=== PATIENT | female | born 1990 | race Caucasian/White ===

== ENCOUNTER 2016-10-24 07:08 | Day surgery (SDC) | payer OTHER ==
[~2016-10-24] VITALS: Ht 160 cm; Wt 62.7 kg
[2016-10-24] MEDS ORDERED: Propofol 10,000 mCg/mL 20 mL Inj ONE (07:09)
[2016-10-24] MEDS ORDERED: fentaNYL-PF 50 mCg/mL 2 mL Inj ONE (07:09)
[2016-10-24] MEDS: Lactated Ringer's 1,000 ML IV SCH ×2 (07:12→10:25)
[2016-10-24 07:51] VITALS: BP 114/71; PULSE 77; RESP 16; O2SAT 100
[2016-10-24] MEDS ORDERED: Lactated Ringer's 500 ML IV PRN (10:13)
[2016-10-24] MEDS ORDERED: Lactated Ringer's 1,000 ML IV SCH (10:13)
--- NOTE | 2016-10-24 10:13 | PCM.HPANE ---
Patient Data Date of Service: October 24, 2016 (1012) Surgeon Admitting Provider: Attending Provider:Young Santos MD Primary Care Physician:Danial Other Provider:Regan Fields Anesthesia Reason for Visit Foreign Body Right Middle Finger Ht/WT & BMI Height (Feet): 5 Height (Inches): 3.00 Weight (Kilograms): 62.7 Body Mass Index 24.00 Allergies Coded Allergies: No Known Allergies (Verified Allergy, 09/26/10) Past Anesthesia History Anesthesia History: Denies:: Abnormal Airway, Difficult Intubation Diabetes History Hx Diabetes?: No MRSA MRSA: No Medications Home Meds Incl Beta Carey: No Discontinued Reported Medications IBUPROFEN-Expunged Drug, Do Not Renew! 600 Mg [id number] Mg PO PRN 09/25/10 Acetaminphen-Expunged Drug, Do Not Renew! 650 Mg [id number] Mg PO PRN 09/25/10 History History of ENT Problems?: No HEENT History: Denies:: Abnormal Airway Cataracts Difficult Intubation Dysphagia Hearing Problem Sinus Problem TMJ Denture Type: None Teeth Condition: Within Normal Limits Hx of Heart Problems?: No Cardiovascular History: Denies:: Chest Pain Hx of Respiratory Problem?: No Respiratory History: Denies:: Cough Hx Neurologic Problems?: No Hx of GI Problems?: No Hx of Problems?: No Genitourinary History: Positive for:: Urinary Tract Infection (2 -3 in a life time) Female Hx: Denies:: Currently Endometriosis Pelvic Inflammatory Problems with Breasts? Skin History: Positive for:: History Skin Disorders? (cellulitis right middle finger) Denies:: Pressure Ulcers Hx Musculoskeletal Problems?: No Hx of Psycho/Social Problems?: No Hx Surgeries?: No Hx Any Other Health Problems?: No Other History: Denies:: Cancer History Blood Transfusions: Denies:: Blood Transfusions Hx Diabetes: No Hx Alcohol Use: YesHx Substance Use: No Stop/Bang S-Snoring: Do You Snore Loudly: No T-Tired: feel tired, fatigued: No O-Obsered: Observed not breath: No P-Blood Pressure: treated: No B- Body Mass Index > 35 kg/m2: No A- Age over 50: No N- Neck Large Circumference: No G- Gender Male: No DANIELLA Total Score: 0 DANIELLA Risk Assessment: Low Risk, <3 Yes Risk Assessment Category Category 1A: Patient has history of documented sleep apnea, and HAS NOT received any narcotic, sedative or anesthesia administration during this stay. Category 1B: Patient has history of documented sleep apnea, and HAS received any narcotic , sedative or anesthesia administration during this stay Category 2: Patient has SUSPECTED Obstructive Sleep Apnea, and HAS received any narcotic , sedative or anesthesia administration during this stay. Category 3: Patient has SUSPECTED Obstructive Sleep Apnea and HAS NOT received narcotic, sedative or anesthesia administration during this stay. Category 4: Outpatient in Procedural Areas with known sleep apnea or who screen positive for High Risk via the STOP/BANG questionnaire. Exam Exam Vital Signs Vital Signs Date Time Temp Pulse Resp B/P Pulse Ox O2 Delivery O2 Flow Rate FiO2 10/24/16 07:51 36.7 77 16 114/71 100 Room Air General Appearance: Alert HEENT/AIRWAY: MP 1 Lungs: Clear to Auscultation Heart: Exam Unremarkable Meds/Labs/Diagnostics Admission Meds Current Medications Lactated Ringer's (Lr) 1,000 ml @ 120 mls/hr [id number] IV Last administered on t 07:12; Start 10/24/16 at 05:00; Stop 10/24/16 at 13:19 Plan Impression Patient chart reviewed, patient interviewed and anesthestic plan with risks, benefits, and alternatives discussed, and informed consent obtained. NPO per Anesth. Guidelines: Yes ASA Physical Status: ASA1 Normal Healthy Anesthetic Plan: MAC Bene/Risks/Altern/Consents: Yes HP Complete Prior to Induction: Yes Beny Malhotra MD October 24, 2016 10:13
[2016-10-24] MEDS ORDERED: HYDROmorphone 1 mg/mL Inj IVPUSH PRN (10:15)
[2016-10-24] MEDS ORDERED: Dexamethasone 4 mg/mL Inj IVPUSH PRN (10:15)
[2016-10-24] MEDS ORDERED: EPHEDrine Sulfate 50 mg/mL Inj IVPUSH PRN (10:15)
[2016-10-24] MEDS ORDERED: Ondansetron 2 mg/mL 2 mL Inj IVPUSH PRN (10:15)
[2016-10-24] MEDS ORDERED: Phenylephrine 10,000 mCg/mL Inj IVPUSH PRN (10:15)
[2016-10-24] MEDS ORDERED: MetoCLOpramide 5 mg/mL 2 mL Inj IVPUSH PRN (10:15)
[2016-10-24] MEDS ORDERED: fentaNYL-PF 50 mCg/mL 2 mL Inj IVPUSH PRN (10:15)
[2016-10-24] MEDS ORDERED: Bupivacaine-MPF 0.25% 30 mL Inj INFILTRATE ONE (10:42)
[2016-10-24] MEDS ORDERED: Bacitracin Ointment Packet TOPICAL ONE (10:56)
--- NOTE | 2016-10-24 11:05 | PCM.ANEP1 ---
Post Anesthesia PACU Phase 1 Assessment Vital Signs 107/60, 100, 60, 21, 36.2 Vital Signs Date Time Temp Pulse Resp B/P Pulse Ox O2 Delivery O2 Flow Rate FiO2 10/24/16 07:51 36.7 77 16 114/71 100 Room Air Anesthetic Administered: MAC Level of Alertness: Awake, talking PURI's with Equal Strength: Yes Pain: No Nausea or Vomiting: No CV Function and Hydration: Yes Airway Device: none Oxygen Delivery: Room Air Lungs: Clear to Auscultation Dermatome Level: Full Sensation Summary uneventful mac PACU Phase 2 Assessment Complications: No Follow up Care: No Patient Instructions Provided: N/A Beny Malhotra MD October 24, 2016 11:05
[2016-10-24 11:13] VITALS: BP 107/60; PULSE 59; RESP 16; O2SAT 100
[2016-10-24] MEDS ORDERED: HYDROcodone-APAP 5-325 mg Tablet PO ONE (11:45)
[2016-10-24 11:46] VITALS: BP 105/55; PULSE 69; RESP 16; O2SAT 100
--- NOTE | 2016-10-24 13:56 | OP ---
[address] [address] OPERATIVE REPORT PATIENT: VIJAY THOMASON : 1990 MR#: [id number] ADMIT: 10/24/2016 JOB ID: [id number] DATE OF SURGERY: 10/24/2016 PREOPERATIVE DIAGNOSIS(ES): Right middle finger retained foreign body. POSTOPERATIVE DIAGNOSIS(ES): Right middle finger retained foreign body. The foreign body was deep, underneath the extensor tendon apparatus. PROCEDURE: Excision of deep right middle finger retained foreign body. SURGEON: Young Santos MD. SALES OFFICE ADMINISTRATOR: None. ANESTHESIA: MAC with local. COMPLICATIONS: None apparent. SPECIMEN: None. INDICATIONS FOR PROCEDURE: This is a 26-year-old, female patient who sustained a splinter puncture to the dorsum of the right middle finger near the PIP joint. She was seen at urgent care, and the splinter was removed. However, the patient continued to have residual symptoms and swelling for the last three weeks. Ultrasound of this area revealed a retained foreign body, likely a splinter. At this point, removal and excision of this foreign body is indicated. PROCEDURES AND FINDINGS: The patient was identified in the preoperative area. Surgical site was marked. The patient was then taken back to the operating room and placed supine on the operating table. Appropriate time-outs were taken. MAC was induced smoothly. Local anesthesia was then infiltrated to the right middle finger about the neurovascular bundle in a dorsal ring block. It was noted that patient has a black annabel on the dorsum of the middle finger PIP joint that had previously been placed by Radiology to annabel the location of the foreign body. A small transverse incision was then made directly over the spot approximately 6-7 mm in length. I then deepened the incision in a longitudinal manner down to the underlying subcutaneous tissue. I spent quite a bit of time looking for the foreign body in this area. I did not see any. I then deepened the incision down to the underlying extensor apparatus. I then examined this area. I noted there appeared to be a small defect along the extensor apparatus. Gentle spreading of this defect revealed quite a bit of inflammatory material underneath the apparatus between the extensor and the underlying periosteum. I manually removed as much of the inflammatory deposition as I could. I then also removed a small piece of a splinter approximately 2-3 mm in size. Once this had been done, the area was irrigated with copious amounts of normal saline. Tourniquet was released. The incision was then reapproximated with two 5-0 nylon simple interrupted sutures. Care was taken to allow some seepage from the incision to prevent abscess formation. The patient tolerated the procedure well. Needle count, sponge count, instrument counts were correct at the end of the procedure. The patient was transported to recovery in stable condition.
== END 2016-10-24 23:59 | disposition home or self-care (01) ==
LOC: SAS 07:08
PROVIDERS: ATTEND Plastic Surgery
DX: S61.242A Puncture wound with foreign body of right middle finger without damage to nail, initial encounter (principal); L03.011 Cellulitis of right finger; W45.8XXA Other foreign body or object entering through skin, initial encounter; Y93.89 Activity, other specified; Y92.9 Unspecified place or not applicable; Y99.8 Other external cause status
CPT/HCPCS: 20525; J2250; J3010; J7120